=== PATIENT | male | born 1950 | race Caucasian/White ===

== ENCOUNTER → 2023-09-15 12:00 | Outpatient (REF) | payer MEDICARE, OTHER, SELFPAY | LOC: RAD 12:00 | PROVIDERS: ATTENDING PHYSICIAN Nurse Practitioner Family | DX: M54.50 Low back pain, unspecified (principal) | CPT/HCPCS: 72110 ==

== ENCOUNTER → 2023-10-04 08:18 | Outpatient (REF) | payer MEDICARE, OTHER, SELFPAY | LOC: MRI 3T 08:18 | PROVIDERS: ATTENDING PHYSICIAN Podiatrist; FAMILY PHYSICIAN Internal Medicine Geriatric Medicine | DX: S91.301D Unspecified open wound, right foot, subsequent encounter (principal); M86.271 Subacute osteomyelitis, right ankle and foot | CPT/HCPCS: 73718 ==

== ENCOUNTER 2023-10-05 09:47 | Emergency (ER) | payer MEDICARE, OTHER, SELFPAY ==
[2023-10-05 09:58] VITALS: BP 138/85
[2023-10-05 10:29] VITALS: BP 132/90
--- NOTE | 2023-10-05 10:31 | ED.GENMED ---
History of Present Illness
General
Chief Complaint: Bowel Problem
Time Seen by Provider: 10/05/23 10:10
Travel History
Have you had any contact with someone who has COVID-19?: No
Do you have any symptoms of coronavirus? Fever > 100 degrees, chills, cough, shortness of breath, sore throat, loss of taste or smell, muscle aches, or headache?: No
History of Present Illness
History of Present Illness:
72-year-old male presents to the emergency department for evaluation of constipation over the past 2 weeks. States he is passing small caliber stools and frequent flatus however no formed bowel movements. He has been using [id number]
Dulcolax as well as a full bottle of magnesium citrate without significant relief. He feels that this may have started after having a minor low back injury approximately 1 month ago, occurred while twisting to catch a dog that was running away. He
still has moderate low back pain but no lower extremity paresthesias. Does have chronic urinary retention for which he takes dutasteride, does not feel as though this has gotten any worse recently.
Past History
Past History
ED Past Medical History: HTN, Hypercholesterolemia, NIDDM (Diet controlled) and Other (MRSA, Charcot foot, chronic wound R great toe)
ED Past Surgical History: Orthopedic and Other (Hernia repairs)
Social History
Tobacco: Non-smoker
Alcohol: Occasional
Drug: None
Personal:
Living: with family
Employment: Employed
Review of Systems
Review of Systems
Allergies reviewed?: Yes
All Other Systems: ROS reviewed and negative except as documented in HPI and ROS
Phy Exam
Physical Exam
Physical Exam:
GEN: Well appearing, NAD, WDWN
HEENT: Oral mucosa moist, no scleral icterus
Cardiac: Regular rate
Lung: No respiratory distress, no tachypnea
Abdomen: Soft, nontender, no rigidity or peritoneal signs
MSK: No gross deformity or injuries
Skin: Good color, no pallor or jaundice, no rashes
Neuro: AO x3, moves all extremities freely
Psych: Calm, cooperative
Course
Orders/Labs/Results
Orders:
Orders
10/05/23 10:30
Bladder Scan- Treatment ONCE
CR Obstruct Series W/pa Chest Urgent
Comment:
Reason For Exam: constipation
10/05/23 10:34
Urinalysis Urgent
Date Specimen was Collected: 10/05/23
Time Specimen was Collected: 10:33
Urine Microscopic Urgent
Date Specimen was Collected: 10/05/23
Time Specimen was Collected: 10:33
Abnormal Lab Results
10/05/23
10:34
Urine Ketones 3+ A
(Negative)
Urine Occult Blood 1+ A
(Negative)
Urine RBC 3-6 A /HPF
(0-2)
Urine Glucose 3+ A
(Negative)
Vital Signs
Initial and Last Documented VS:
Initial Vital Signs
Temp Pulse Resp BP Pulse Ox
98.7 F 94 16 138/85 97
10/05/23 09:58 10/05/23 09:58 10/05/23 09:58 10/05/23 09:58 10/05/23 09:58
Last Documented Vital Signs
Temp Pulse Resp BP Pulse Ox
98.7 F 86 18 115/82 92
10/05/23 09:58 10/05/23 11:02 10/05/23 11:02 10/05/23 11:21 10/05/23 11:30
MDM/Problems Addressed
MDM/Problems Addressed:
X-rays of the abdomen independently interpreted by me suggestive of large colonic stool burden no obstruction. Patient was noted to have urine retention of approximately 160 cc, recommend he follow-up with his severe his urologist regarding this
however I do not feel this is concerning in the setting of his back injury for cauda equina given that he has chronic urine retention. Recommend MiraLAX bowel prep given failure of other regimens at this time for his constipation
*Critical Care Note
Total Time (30-74mins, 75-104mins- exclusive of procedures): Not Applicable
ED Attending Note
-
Portions of this chart may have been created with voice recognition software.� Occasional wrong word or��sound alike� substitutions may have occurred due to the inherent limitations of voice recognition software.
Discharge Plan
Departure
Patient Disposition: Home (Routine Discharge)
Date of Disposition: 10/05/23
Time of Disposition: 11:20
Patient with high blood pressure during this ER visit?: No
Discharge Problem:
Constipation
Instructions: Constipation, Adult (DC)
Prescriptions:
No Action
cyanocobalamin (vitamin B-12) 1,000 MCG tablet
1,000 mcg PO DAILY
metformin 1,000 MG tablet
1,000 mg PO BID@0800,1700
ramipril 5 MG capsule
5 mg PO DAILY
dutasteride [Avodart] 0.5 MG capsule
0.5 mg PO DAILY
cholecalciferol (vitamin D3) 1,000 UNITS tablet
1,000 units PO DAILY
dapagliflozin propanediol [Farxiga] 10 mg Tablet
10 mg PO DAILY
coQ10 (ubiquinol) 100 mg Capsule
100 mg PO DAILY
Ozempic 1 mg/dose (4 mg/3 mL) Pen Injector
1 mg SC MO
ezetimibe-simvastatin 10-40 mg tablet
0.5 tab PO DAILY
Referrals:
Kirk Orourke MD [Family Provider] -
Activity Restrictions/Additional Instructions:
2 tablets of dulcolax in the AM
Consume an entire 238g bottle of Miralax mixed in 64oz clear liquid of your choice over 6-8 hours
Take two dulcolax at the completion of the Miralax/liquid
Interventions
Interventions:
*Risk Screen - Suicide Last Done: 10/05/23 10:33
*General Assessment Last Done: 10/05/23 10:33
*Neglect/Abuse Screening Last Done: 10/05/23 10:33
ED- Fall Risk Assessment Last Done: 10/05/23 10:33
*ED COVID-19 Vaccine History Last Done: 10/05/23 10:03
*Nursing Disposition Last Done: 10/05/23 11:33
UQ-Drtybk-Jfgamcetus Assessment Last Done: 10/05/23 10:33
Discharge Date and Time
Discharge Date/Time: 10/05/23 11:33
[2023-10-05 10:33] VITALS: BMI 28.4
[2023-10-05 10:51] LABS: Urine Albumin Negative (Neg - Trace); Urine Bilirubin Negative (Negative); Urine Character Clear (Clear); Urine Color Yellow; Urine Glucose 3+ (Negative); Urine Ketone 3+ (Negative); Urine Leukocyte Negative (Negative); Urine Nitrite Negative (Negative); Urine Occult Blood 1+ (Negative); Urine Urobilinogen Negative (Neg - 1+)
[2023-10-05 11:00] VITALS: BP 123/78
[2023-10-05 11:21] VITALS: BP 115/82
== END 2023-10-05 11:33 | disposition home or self-care (01) ==
LOC: EMR 09:47
PROVIDERS: Physician Assistant; EMERGENCY PHYSICIAN Emergency Medicine; FAMILY PHYSICIAN Internal Medicine Geriatric Medicine
DX: K59.00 Constipation, unspecified (principal); R33.9 Retention of urine, unspecified; M54.50 Low back pain, unspecified; I10 Essential (primary) hypertension; E11.9 Type 2 diabetes mellitus without complications; E78.00 Pure hypercholesterolemia, unspecified; A52.16 Charcot's arthropathy (tabetic); Z86.14 Personal history of Methicillin resistant Staphylococcus aureus infection; Z79.84 Long term (current) use of oral hypoglycemic drugs; Z88.8 Allergy status to other drugs, medicaments and biological substances
CPT/HCPCS: 99283; 51798; 74022; 81003; 81015

== ENCOUNTER → 2025-07-12 08:44 | Outpatient (REF) | payer MEDICARE, OTHER, SELFPAY | LOC: RAD 08:44 | PROVIDERS: ATTENDING PHYSICIAN Nurse Practitioner Adult Health; FAMILY PHYSICIAN Internal Medicine Geriatric Medicine | DX: S91.109A Unspecified open wound of unspecified toe(s) without damage to nail, initial encounter (principal); E11.69 Type 2 diabetes mellitus with other specified complication | CPT/HCPCS: 73630 ==

== ENCOUNTER 2025-07-19 08:06 | Outpatient (REF) | payer MEDICARE, OTHER, SELFPAY | END 2025-07-19 23:59 | disposition home or self-care (01) | LOC: WOUND 08:06 | PROVIDERS: ATTENDING PHYSICIAN Registered Nurse; FAMILY PHYSICIAN Internal Medicine Geriatric Medicine | DX: L97.511 Non-pressure chronic ulcer of other part of right foot limited to breakdown of skin (principal); E11.621 Type 2 diabetes mellitus with foot ulcer; M14.671 Charcot's joint, right ankle and foot; E11.42 Type 2 diabetes mellitus with diabetic polyneuropathy | CPT/HCPCS: 99203 ==